=== PATIENT | female | born 2005 | race Caucasian/White ===

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

== ENCOUNTER → 2025-03-14 | Outpatient (CLI) | payer OTHER ==
--- NOTE | 2025-03-14 07:43 | USB ---
Reason for Exam: Clinical finding. Technique: Method: Targeted. Findings: The lateral section of the breast of the left breast, the axilla of the left breast and the retroareolar of the left breast were scanned. Targeted ultrasound. At level of pain 3:00 position 5 cm distance from nipple no concerning solid or cystic mass or fluid collection is seen. There is a 1.1 x 0.4 x 1.3 cm thin-walled cyst just below the dermal layer at 5:00 position 1 cm distance from nipple. Overall Assessment: Benign, BI-RAD 2 Management: Screening Mammogram of both breasts at age 39. Manage patient's symptoms clinically. A clinical breast exam by your physician is recommended on an annual basis and results should be correlated with mammographic findings. This exam should not preclude additional follow-up of suspicious palpable abnormalities. Results were given to the patient verbally at the time of exam. [facility], , 03/14/2025 7:40 AM. Electronically signed and approved by: Fili Miller M.D.
== END | disposition home or self-care (01) ==
LOC: RADUSWWP 06:52
PROVIDERS: ATTEND Pediatrics
DX: N64.4 Mastodynia (principal)